=== PATIENT | male | born 1960 | race Caucasian/White ===

== ENCOUNTER 2018-04-09 10:54 | Emergency (ER) | END 2018-04-09 13:14 | disposition left against medical advice (07) ==

== ENCOUNTER 2018-05-19 22:07 | Inpatient (IN) | END 2018-05-23 12:46 | disposition home or self-care (01) | DRG 308 ==

== ENCOUNTER 2018-07-14 11:32 | Inpatient (IN) | END 2018-07-17 14:50 | disposition home or self-care (01) | DRG 309 ==